=== PATIENT | male | born 1985 | race Two or more races ===

== ENCOUNTER 2019-11-22 11:40 | Emergency (ER) | payer OTHER ==
[~2019-11-22] VITALS: Ht 180.3 cm; Wt 70.3 kg
[2019-11-22] MEDS ORDERED: TETANUS-DIPTH-ACEL PERTUSSIS 0.5ML SYR Tdap IM ONE (12:00)
[2019-11-22 12:05] VITALS: BP 118/81
== END 2019-11-22 12:27 | disposition home or self-care (01) ==
LOC: ER 11:40
DX: S00.83XA Contusion of other part of head, initial encounter (principal); F17.210 Nicotine dependence, cigarettes, uncomplicated; Y35.401A Legal intervention involving unspecified sharp objects, law enforcement official injured, initial encounter; Y93.89 Activity, other specified; Y92.89 Other specified places as the place of occurrence of the external cause; Y99.8 Other external cause status
CPT/HCPCS: 70486; 90471; 90715